=== PATIENT | female | born 1965 | race Caucasian/White ===

== ENCOUNTER 2024-01-15 12:58 | Outpatient (AMB) | payer MEDICARE, SELFPAY ==
--- NOTE | 2024-01-15 13:01 | A.OFFVIS_ITS ---
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 Accompanied by: Spouse Allergies sumatriptan [From Imitrex] Allergy (Unknown, Verified 01/15/24 13:10) Palpitations Medication List - Last Reconciled 01/16/24 by Loal Delacruz, GREGG carisoprodol (Soma) 350 mg PO TID fentanyl citrate 1,600 mcg buccal QID hydromorphone 4 mg PO Q6H PRN naloxone 4 mg/actuation (Narcan) 4 mg intranasal Q2M PRN oxycodone ER mg PO TID HPI HPI CHRONIC NECK PAIN: Details: Patient is a pleasant 59 years old female with extensive medical history, including chronic neck pain, occipital neuralgia, degenerative arthritis and cervical disc disease, status post 5 major cervical and thoracic spine surgeries by Dr. Beach (1999x2, 2002, 2004, 2019x2), including extensive spinal fusion com plicated by bacterial infection (2 months of antibiotics via PICC line), presents today to discuss interventional management to manage recent and recurrent flare-up of chronic severe neck spasm and pain and occipital neuralgia. Patient has been previously under the care of Dr. Jean for medical and interventional pain management. Since he retired, her PCP took over long-term opioid prescribing. She is currently taking Soma 350 mg TID, Fentanyl lollipops 1600 mcg buccal QID, hydromorphone 4 mg Q6H prn, and Oxycontin 80 mg TID. Patient reports her chronic pain is well controlled with these medication regime but not acute pain and spasms attacks. Patient reports her severe neck pain and spasm flare-ups occur in cycles every 2 years during which time her pain is debilitating. She is self-employed and has stopped working on 10/25/23 due to severe symptoms. She reports acute spinal cord pain shooting from cervical to head, face, neck due to chronic nerve damage. Patient tried oral steroids which calmed her spasm attacks. She also received Norflex 60 mg IM on 12/13/23 at her PCP office with partial improvement in her neck and upper back spasms. Patient requests occipital nerve block to alleviate her significant pulsing, sharp, aching, throbbing and burning sensations that start at the base of her head, neck and extends to both sides of her scalp. Patient also suffers from chronic cervicogenic headaches. Reports numbness in fingers and toes on the right. She reports numbness on the right side of her head due to occipital nerve injury during cervical spine surgery which required occipital nerve resection. Patient reports she previously received TPI, therapeutic, Botox and occipital nerve block injections by Dr. Jean and these were helpful. Patient states occipital neuralgia onset happened after she gave in 1988, worse on the right side but goes on left side as well during severe pain and spasms flare-ups. She reports being in labor for 13 hours with her daughter and underwent emergency as her child was in ty breech position. Patient has also tried in the past gabapentin, amitriptyline, pregabalin, homepathic therapies, underwent multiple Neurology evaluations and treatments, completed biofeedback and CBT therapies and mental counseling. Patient also reports having ITDD pain pump implant through [facility] but due to long distance and frequent driving for refills she opted to explant this. Patient has history of elevated CRP levels, chronic myalgias, myositis and cervical spine ankylosis. Denies previous Rheumatology evaluation. Oswestry Neck Disability Score=37 (completely disabled) Location: Neck, upper back, head, face, occipital regions right>left Duration: Chronic pain since 1988 Characteristics of symptom or complaint: Pulsing, sharp, throbbing, stabbing, pinching, spasming, spreading, tight Aggravating or associated factors: Movements, weather changes, at times no specific factors Relieving factors: Heat, ice, opioids, lidocaine patches, Treatment: Massage, injections, TENS unit, acupunture, ITDD, CBT therapy [facility] Medical History (Updated 01/16/24 @ 21:18 by GREGG Pal) Occipital neuralgia Brachial neuritis Tobacco user Degeneration of intervertebral disc of lumbar region Lumbar spondylosis Constipation Umbilical hernia joint terminal attack controller (current) use of opiate analgesic Cervical radiculopathy Cervical spine ankylosis Degenerative arthritis of cervical spine Myalgia Myositis Cervical post-laminectomy syndrome Gall stones Digestive problems Kidney stones Chronic neck pain Opioid dependence Surgical History (Updated 01/15/24 @ 13:21 by Stacey Peterson) S/P cervical spinal fusion Social History (Updated 01/15/24 @ 14:03 by Stacey Peterson) Patient Tobacco Use Status: Current everyday Tobacco user Tobacco use type: Cigarette Cigarette Packs Per Day: 0.5 Substance Use Type: Caffiene Review of Systems Const All systems reviewed & are unremarkable except as noted in HPI and below Physical Exam Vital Signs: Last Vital Signs Pulse 83 01/15/24 13:10 BP 124/73 01/15/24 13:10 Pulse Ox 100 01/15/24 13:10 Oxygen Delivery Method Room Air 01/15/24 13:10 BMI result Body Mass Index 22.8 General: Appears afebrile. Alert and oriented. Mood and affect appropriate. Follows and participates in conversation appropriately. Respiratory effort is unlabored. No cough. Able to transition from sit to stand unassisted. Ambulates with bilaterally normal heel strike and toe off. HEENT Head: Yes normal to inspection, Yes No palpable skull fracture present, Yes normocephalic, Yes atraumatic, No occipital foramen tenderness, No palpable skull fracture, No scalp tenderness and No Temporal artery tenderness present Neck Other: Patient with decreased cervical ROM in all planes/especially with lateral rotations and bending. Extensive posterior linear incision, well healed scars with mild keloid formation. Normal scarring anterior neck. Reports increased pain with cervical extension and flexion. Spurling compression test equivocal. Pain is unchanged by Spurling maneuver with retraction. Elvey's tension test negative. Lhermitte's test was negative. DTR intact, diminished. Patient demonstrated 4/5 motor strength of bilateral upper extremities. 2 + radial pulses. Significant tightness throughout upper and lower trapezius, levator scapulae , rhomboids muscles and cervical paraspinals bilaterally. Neck: Yes no lymphadenopathy, Yes supple, No anterior neck swelling, Yes no JVD, No prominent supraclavicular fat pad and No prominent dorsocervical fat pad Back/Spine/Pelvis Cervical Spine: loss of normal cervical lordosis, cervical muscular tenderness, pain with cervical ROM, Cervical spine scars present, cervical spasm and Cervical spine tenderness Assessment & Plan Assessment & Plan (1) Cervical spine ankylosis: Code(s): M43.22 - Fusion of spine, cervical region Category: Medical (2) Degenerative arthritis of cervical spine: Code(s): M47.812 - Spondylosis without myelopathy or radiculopathy, cervical region Category: Medical (3) Myalgia: Code(s): M79.10 - Myalgia, unspecified site Category: Medical (4) Cervical post-laminectomy syndrome: Code(s): M96.1 - Postlaminectomy syndrome, not elsewhere classified Category: Medical (5) joint terminal attack controller (current) use of opiate analgesic: Code(s): Z79.891 - prison (current) use of opiate analgesic Category: Medical (6) Occipital neuralgia: Code(s): M54.81 - Occipital neuralgia Category: Medical Plan Patient presents with multifactorial neck and occipital pain s/p over 5 cervical spine fusion surgeries, with combination of muscle spasms, myofascial pain, occipital neuralgia and cervicogenic headaches. We will schedule Bilateral Therapeutic Greater and Lesser Occipital Nerve Blocks with local anesthetic and US guidance.?Expectations, risks and benefits were reviewed. Patient is aware she will be contacted to schedule this procedure. Patient will continue medical pain management with her PCP for chronic pain syndrome. She is currently taking Soma 350 mg TID, Fentanyl lollipops 1600 mcg buccal QID, hydromorphone 4 mg Q6H prn, and Oxycontin 80 mg TID. Patient reports her chronic pain is well controlled with these medication regime but not acute pain and spasms attacks. Rheumatology Referral for further evaluation of elevated CRP and history of cervical ankylosis, myositis. Baseline labs ordered. All questions and concerns have been answered and patient agreed with the plan. Follow up after injections and sooner as needed. Orders: Orders Cyclic Citrullinated Peptide 01/15/24 M43.22 - Fusion of spine, cervical region, M60.9 - Myositis, unspecified, M79.10 - Myalgia, unspecified site DNA Double Stranded-Crithidia 01/15/24 M43.22 - Fusion of spine, cervical region, M60.9 - Myositis, unspecified, M79.10 - Myalgia, unspecified site Rheumatoid Factor 01/15/24 M43.22 - Fusion of spine, cervical region, M60.9 - Myositis, unspecified, M79.10 - Myalgia, unspecified site KEARA Reflex Titer and Pattern 01/15/24 M43.22 - Fusion of spine, cervical region, M47.812 - Spondylosis without myelopathy or radiculopathy, cervical region, M60.9 - Myositis, unspecified, M79.10 - Myalgia, unspecified site, M96.1 - Postlaminectomy syndrome, not elsewhere classified CRP High Sensitivity 01/15/24 M43.22 - Fusion of spine, cervical region, M60.9 - Myositis, unspecified, M79.10 - Myalgia, unspecified site, R79.82 - Elevated C-reactive protein (CRP) Referrals Rheumatology Referral M43.22 - Fusion of spine, cervical region, M47.812 - Spondylosis without myelopathy or radiculopathy, cervical region, M60.9 - Myositis, unspecified, M79.10 - Myalgia, unspecified site, M96.1 - Postlaminectomy syndrome, not elsewhere classified, R79.82 - Elevated C-reactive protein (CRP) Coding Level of Care Code New Pt Level 4 (62153) Diagnoses Cervical spine ankylosis M43.22 Degenerative arthritis of cervical spine M47.812 Myalgia M79.10 Cervical post-laminectomy syndrome M96.1 prison (current) use of opiate analgesic Z79.891 Occipital neuralgia M54.81
[2024-01-15 13:10] VITALS: BP 124/73; PULSE 83; O2SAT 100; BMI 22.8
== END 2024-01-15 14:11 | disposition home or self-care (01) ==
PROVIDERS: PCP Internal Medicine; Visit Provider Nurse Practitioner Family
DX: M43.22 Fusion of spine, cervical region (principal); M47.812 Spondylosis without myelopathy or radiculopathy, cervical region; M79.10 Myalgia, unspecified site; M96.1 Postlaminectomy syndrome, not elsewhere classified; Z79.891 Long term (current) use of opiate analgesic; M54.81 Occipital neuralgia
CPT/HCPCS: 99204

== ENCOUNTER 2024-01-15 12:58 | Outpatient (REF) | payer MEDICARE, SELFPAY ==
[2024-01-15 21:25] LABS: Rheumatoid Factor < 13.0 IU/mL (<15.0)
[2024-01-16 13:04] LABS: CRP High Sensitivity >10.0 mg/L
[2024-01-17 14:28] LABS: Cyclic Citrullinated Peptide <16 UNITS
[2024-01-17 15:23] LABS: Anti Nuclear Antibody Screen NEGATIVE (NEGATIVE)
[2024-01-20 14:33] LABS: DNAds, Crithidia Antibody Negative (Negative)
== END 2024-01-15 12:59 | disposition home or self-care (01) ==
LOC: HO.LAB 12:58
PROVIDERS: PCP Internal Medicine; Visit Provider Nurse Practitioner Family
DX: M47.812 Spondylosis without myelopathy or radiculopathy, cervical region (principal); M54.81 Occipital neuralgia; M43.22 Fusion of spine, cervical region; M60.9 Myositis, unspecified; M96.1 Postlaminectomy syndrome, not elsewhere classified; R79.82 Elevated C-reactive protein (CRP); Z79.891 Long term (current) use of opiate analgesic
CPT/HCPCS: 36415; 86038; 86141; 86200; 86255; 86431; 99202

== ENCOUNTER 2024-03-26 10:59 | Outpatient (AMB) | payer MEDICARE, SELFPAY ==
--- NOTE | 2024-03-26 11:00 | A.OFFVIS_ITS ---
Vital Signs 03/26/24 11:06 Height 5 ft 4.5 in Weight 119 lb 14.903 oz BMI 20.3 BP 90/54 L Blood Pressure Location Lt brachial Position Sitting Pulse 89 Pulse Source Pulse Oximeter Intake Visit Reasons: Myositis/Elev CRP/CONFIRMED Intake Note: New patient internally referred from Pain Management for Myositis & Elevated CRP. Voip Technician Required: No Accompanied by: Self / Same As Patient Allergies sumatriptan [From Imitrex] Allergy (Unknown, Verified 03/26/24 11:07) Palpitations Medication List - Last Reconciled 03/26/24 by Yasmeen Story MD carisoprodol (Soma) 350 mg PO TID fentanyl citrate 1,600 mcg buccal QID hydromorphone 4 mg PO Q6H PRN naloxone 4 mg/actuation (Narcan) 4 mg intranasal Q2M PRN oxycodone ER mg PO TID HPI Comments Details: This is a 59-year-old female who is referred by Pain Management for evaluation of elevated CRP and reported history of myopathy/myositis. Patient stated that she has had neck and spine problems for more than 30 years. She had numerous surgical procedures. She states that she had a spinal surgery in 2019, postop developed a surgical site infection and had to go back to the hospital. She stated that since then she has not been the same. That for years she would have episodes of abrupt onset of pain in her neck that radiates up her the back of her scalp and into her head. Episodes last a few weeks. Usually treated with steroids. In October she had a similar episode and was treated with Decadron. She states that it did not help much. She denies any muscle weakness. Denies any skin rashes, denies any weight loss. No fevers. She is unaware of any family history of an autoimmune rheumatic disease. Denies any history of DVT/PE. She was evaluated by a dentist and was told that she has a tooth infection and it will need to get pulled out. [facility], LAT[facility] Medical History Occipital neuralgia Brachial neuritis Tobacco user Degeneration of intervertebral disc of lumbar region Lumbar spondylosis Constipation Umbilical hernia [facility] (current) use of opiate analgesic Cervical radiculopathy Cervical spine ankylosis Degenerative arthritis of cervical spine Myalgia Myositis Cervical post-laminectomy syndrome Gall stones Digestive problems Kidney stones Chronic neck pain Opioid dependence Surgical History History of surgery S/P cervical spinal fusion Family History Mother No known health problems Father Heart problem Social History Patient Tobacco Use Status: Current everyday Tobacco user Tobacco use type: Cigarette Cigarette Packs Per Day: 0.5 Substance Use Type: Caffiene Review of Systems Const Denies fatigue, Denies fever(s), Reports headache(s) and Denies weight loss ENT Reports headache(s) and Reports neck pain Musc Reports neck pain Skin/Breast Denies rash Neuro Reports headache(s) Endo Denies fatigue Physical Exam Vital Signs: Last Vital Signs Pulse 89 03/26/24 11:06 BP 90/54 L 03/26/24 11:06 BMI result Body Mass Index 20.3 Const General: cooperative, healthy appearing and comfortable Nutritional Appearance: average body habitus Orientation/consciousness: patient oriented x3 Limitations: no limitations HEENT Head: Yes normocephalic and Yes atraumatic Mouth: Normal oral and palatal mucosa present Resp Effort & Inspection: normal respiratory effort and able to speak in complete sentences Auscultation: clear to auscultation bilaterally Cardio Rate: regular rate Rhythm: regular rhythm Skin Other: No heliotrope rash No V neck sign No Shawl sign, no holster sign No Gottron's rash or Gottron's papules General skin exam: no rashes or lesions noted Neuro General: patient oriented x3 Extrem Other: No active synovitis Normal nailfold capillaroscopy Proximal muscle strength 5/5 all 4 extremities Negative Fabere test bilaterally Assessment & Plan Assessment & Plan (1) Elevated C-reactive protein (CRP): Code(s): R79.82 - Elevated C-reactive protein (CRP) Category: Medical Plan: This is a 59-year-old female who was referred by Pain Management for evaluation of elevated CRP and questionable history of myositis. Upon evaluation I do not see any signs suggestive of an autoimmune rheumatic disease. Discussed symptoms and signs that are suggestive of an autoimmune rheumatic disease, advised patient to follow-up as needed Follow-up with other providers Plan I spent 22 minutes reviewing patient's chart, evaluating patient, counseling patient and documenting in the chart Coding Level of Care Code New Pt Level 3 (78658) Diagnoses Elevated C-reactive protein (CRP) R79.82
[2024-03-26 11:06] VITALS: BP 90/54; PULSE 89; BMI 20.3
== END 2024-03-26 11:30 | disposition home or self-care (01) ==
PROVIDERS: PCP Internal Medicine; Visit Provider Student in an Organized Health Care Education/Training Program
DX: R79.82 Elevated C-reactive protein (CRP) (principal)
CPT/HCPCS: 99203

== ENCOUNTER → 2024-03-26 10:59 | Outpatient (BNVA) | payer MEDICARE, SELFPAY | PROVIDERS: PCP Internal Medicine; Visit Provider Student in an Organized Health Care Education/Training Program | DX: R79.82 Elevated C-reactive protein (CRP) (principal) | CPT/HCPCS: 99202 ==